=== PATIENT | female | born 1930 | race Caucasian/White ===

== ENCOUNTER 2017-10-21 23:10 | Inpatient (IN) | payer MEDICARE, OTHER ==
[2017-10-22 00:08] LABS: ADD MAN DIFF? NO
[2017-10-22 00:17] LABS: BASOPHILS % 0.2 % (0.0-2.0); EOSINOPHILS % 0.7 % (0.0-7.0); HEMOGLOBIN 8.4 g/dl (12.0-16.0); LYMPHOCYTES # 1.2 10^3/ul (0.8-2.9); LYMPHOCYTES % 20.8 % (15.0-51.0); MEAN CORPUSCULAR HGB CONC 32.3 g/dl (32.0-37.0); MEAN CORPUSCULAR VOLUME 89.7 fl (82.0-101.0); MEAN PLATELET VOLUME 11.3 fl (7.4-10.4); MONOCYTE # 0.5 10^3/ul (0.3-0.9); MONOCYTES % 8.1 % (0.0-11.0); NEUTROPHIL # 3.9 10^3/ul (1.6-7.5); PLATELET COUNT 332 10^3/UL (140-415); RED CELL DISTRIBUTION WIDTH 13.1 % (11.5-14.5)
[2017-10-22 00:17] LABS: WHITE BLOOD COUNT 5.6 10^3/ul (4.8-10.8)
[2017-10-22 00:18] LABS: URINE BLOOD (Dip) POC Negative (NEGATIVE); URINE GLUCOSE (Dip) POC Negative (NEGATIVE); URINE KETONES (Dip) POC Negative (NEGATIVE); URINE LEUKOCYTE EST (Dip) POC Negative (NEGATIVE); URINE NITRITE (Dip) POC Negative (NEGATIVE); URINE TOTAL PROTEIN POC 3+ (NEGATIVE)
[2017-10-22 00:18] LABS: URINE PH (Dip) POC 5.5 (5.0-8.5)
[2017-10-22 00:34] LABS: INR 0.95; PROTIME 12.8 Sec (11.9-14.9)
[2017-10-22 00:35] LABS: PARTIAL THROMBOPLASTIN TIME 29.7 Sec (25.0-35.0)
[2017-10-22 00:37] LABS: LACTIC ACID 1.6 mmol/L (0.5-2.0)
[2017-10-22 00:38] LABS: ALANINE AMINOTRANSFERASE 20 IU/L (13-69); ALBUMIN 3.4 g/dl (3.3-4.9); ALBUMIN/GLOBULIN RATIO 1.09; ALKALINE PHOSPHATASE 64 IU/L (42-121); ANION GAP 21 (8-16); ASPARTATE AMINO TRANSFERASE 16 IU/L (15-46); BLOOD UREA NITROGEN 69 mg/dl (7-20); CALCIUM 8.7 mg/dl (8.4-10.2); CARBON DIOXIDE 20 mmol/L (21-31); CHLORIDE 112 mmol/L (97-110); CREATININE 3.48 mg/dl (0.44-1.00); GLUCOSE 94 mg/dl (70-220); POTASSIUM 5.3 mmol/L (3.5-5.1); SODIUM 148 mmol/L (135-144); TOTAL PROTEIN 6.5 g/dl (6.1-8.1)
[2017-10-22 00:49] LABS: B-TYPE NATRIURETIC PEPTIDE 15600 PG/ML (0-450); TROPONIN-I 0.013 ng/ml (0.00-0.12)
[2017-10-22] MEDS: LABETALOL HCL 20MG INJ IV ×2 (01:39→08:36)
[2017-10-22] MEDS: CEFEPIME 1GM/50 ML (PMX) 50 ML IVPB (01:39)
[2017-10-22] MEDS: NA POLYST SULFON 15 GM/60 ML BTL PO (02:29)
[2017-10-22] MEDS: VANCOMYCIN 1 GM (PMX) 250 ML IVPB (02:33)
[2017-10-22] MEDS: FUROSEMIDE 40 MG INJ IV (03:44)
[2017-10-22 04:14] LABS: LACTIC ACID 1.1 mmol/L (0.5-2.0)
[2017-10-22 05:54] LABS: LACTIC ACID 0.8 mmol/L (0.5-2.0)
[2017-10-22] MEDS ORDERED: LABETALOL HCL 20MG INJ IV (08:30)
[2017-10-22] MEDS ORDERED: AMITRIPTYLINE 25 MG TAB PO (11:00)
[2017-10-22] MEDS: DEXTROSE 5%-0.45% NACL 1,000 ML IV (12:30)
[2017-10-22 12:31] LABS: IRON 26 ug/dl (35-150)
[2017-10-22 12:40] LABS: % IRON SATURATION 13 % SAT (22-52); TOTAL IRON BINDING CAPACITY 202 ug/dl (241-421)
[2017-10-22] MEDS: SALMETEROL/FLUTICASONE 250/50 INHA INH ×2 (14:03→20:56)
[2017-10-22] MEDS: PANTOPRAZOLE 40 MG INJ IV (14:04)
[2017-10-22] MEDS: CLONIDINE 0.1 MG/24 HR PATCH TRANSDERM (14:05)
[2017-10-22] MEDS: ASCORBIC ACID 500 MG TAB PO (14:06)
[2017-10-22] MEDS: ASPIRIN (EC) 81 MG TAB PO (14:06)
[2017-10-22] MEDS: COLCHICINE 0.6 MG TAB PO (14:07)
[2017-10-22] MEDS: VERAPAMIL 40 MG TAB PO ×2 (14:08→20:56)
[2017-10-22] MEDS: LEVOFLOXACIN 250MG/D5W (PMX) 50 ML IVPB (14:41)
[2017-10-22] MEDS: AZITHROMYCIN 500MG/NS (PMX) 250 ML IVPB (14:43)
[2017-10-22] MEDS: ALBUTEROL/IPRATROPIUM (NEB) 3 ML AMP HHN ×2 (15:57→23:50)
[2017-10-22] MEDS: SOD FERRIC GLUC COMPLX 125 MG in SOD CHLORIDE 0.9% 100 ML IVPB (16:42)
[2017-10-22] MEDS: FUROSEMIDE 20 MG TAB PO (17:47)
[2017-10-22] MEDS: AMITRIPTYLINE 25 MG TAB PO (20:57)
[2017-10-22] MEDS ORDERED: FUROSEMIDE 40 MG TAB PO (21:00)
[2017-10-23] MEDS: DEXTROSE 5%-0.45% NACL 1,000 ML IV ×2 (05:40→09:46)
[2017-10-23] MEDS: PANTOPRAZOLE 40 MG INJ IV (06:11)
[2017-10-23] MEDS: FUROSEMIDE 20 MG TAB PO ×2 (06:11→17:47)
[2017-10-23] MEDS: ALBUTEROL/IPRATROPIUM (NEB) 3 ML AMP HHN ×3 (08:00→23:18)
[2017-10-23] MEDS: ASCORBIC ACID 500 MG TAB PO (08:54)
[2017-10-23] MEDS: COLCHICINE 0.6 MG TAB PO (08:54)
[2017-10-23] MEDS: ASPIRIN (EC) 81 MG TAB PO (08:54)
[2017-10-23] MEDS: VERAPAMIL 40 MG TAB PO ×2 (08:55→19:50)
[2017-10-23] MEDS: SALMETEROL/FLUTICASONE 250/50 INHA INH ×2 (08:56→19:51)
[2017-10-23] MEDS ORDERED: NON-FORMULARY/PATIENT OWN MED (Memantine* (Namenda* XR) 28 MG) PO (09:00)
[2017-10-23 10:00] LABS: ADD MAN DIFF? NO
[2017-10-23 10:05] LABS: WHITE BLOOD COUNT 4.6 10^3/ul (4.8-10.8)
[2017-10-23 10:05] LABS: EOSINOPHILS # 0.1 10^3/ul (0.0-0.5); EOSINOPHILS % 1.3 % (0.0-7.0); HEMATOCRIT 23.5 % (37.0-47.0); HEMOGLOBIN 7.7 g/dl (12.0-16.0); LYMPHOCYTES # 1.4 10^3/ul (0.8-2.9); LYMPHOCYTES % 29.3 % (15.0-51.0); MEAN CORPUSCULAR HEMOGLOBIN 28.9 pg (29.0-33.0); MEAN CORPUSCULAR HGB CONC 32.8 g/dl (32.0-37.0); MEAN CORPUSCULAR VOLUME 88.3 fl (82.0-101.0); MEAN PLATELET VOLUME 10.8 fl (7.4-10.4); MONOCYTE # 0.4 10^3/ul (0.3-0.9); MONOCYTES % 9.5 % (0.0-11.0); NEUTROPHIL # 2.8 10^3/ul (1.6-7.5); NEUTROPHILS % 59.7 % (39.0-77.0); PLATELET COUNT 294 10^3/UL (140-415); RED BLOOD COUNT 2.66 10^6/ul (4.20-5.40); RED CELL DISTRIBUTION WIDTH 13.1 % (11.5-14.5)
[2017-10-23 10:36] LABS: ALANINE AMINOTRANSFERASE 20 IU/L (13-69); ALBUMIN 2.9 g/dl (3.3-4.9); ALBUMIN/GLOBULIN RATIO 0.87; ALKALINE PHOSPHATASE 61 IU/L (42-121); ANION GAP 17 (8-16); ASPARTATE AMINO TRANSFERASE 13 IU/L (15-46); BLOOD UREA NITROGEN 58 mg/dl (7-20); CALCIUM 8.4 mg/dl (8.4-10.2); CARBON DIOXIDE 17 mmol/L (21-31); CHLORIDE 113 mmol/L (97-110); CREATININE 3.31 mg/dl (0.44-1.00); GLUCOSE 73 mg/dl (70-220); POTASSIUM 4.5 mmol/L (3.5-5.1); SODIUM 142 mmol/L (135-144); TOTAL PROTEIN 6.2 g/dl (6.1-8.1)
[2017-10-23] MEDS: AZITHROMYCIN 500MG/NS (PMX) 250 ML IVPB (13:50)
[2017-10-23] MEDS: SOD FERRIC GLUC COMPLX 125 MG in SOD CHLORIDE 0.9% 100 ML IVPB (16:20)
[2017-10-23] MEDS: traMADol 50 MG TAB PO (19:50)
[2017-10-23] MEDS: AMITRIPTYLINE 25 MG TAB PO (19:51)
[2017-10-24 05:09] LABS: IMMEDIATE SPIN CROSSMATCH 1 4
[2017-10-24] MEDS: PANTOPRAZOLE 40 MG INJ IV (06:15)
[2017-10-24] MEDS: FUROSEMIDE 20 MG TAB PO ×2 (06:16→17:46)
[2017-10-24] MEDS: ASPIRIN (EC) 81 MG TAB PO (08:40)
[2017-10-24] MEDS: COLCHICINE 0.6 MG TAB PO (08:40)
[2017-10-24] MEDS: ASCORBIC ACID 500 MG TAB PO (08:41)
[2017-10-24] MEDS: VERAPAMIL 40 MG TAB PO ×2 (08:41→21:03)
[2017-10-24] MEDS: SALMETEROL/FLUTICASONE 250/50 INHA INH ×2 (08:42→21:04)
[2017-10-24] MEDS: ALBUTEROL/IPRATROPIUM (NEB) 3 ML AMP HHN ×3 (08:52→23:33)
[2017-10-24] MEDS: AZITHROMYCIN 500MG/NS (PMX) 250 ML IVPB (13:13)
[2017-10-24 13:39] LABS: ADD MAN DIFF? NO
[2017-10-24 13:42] LABS: WHITE BLOOD COUNT 5.2 10^3/ul (4.8-10.8)
[2017-10-24 13:42] LABS: BASOPHILS % 0.2 % (0.0-2.0); EOSINOPHILS % 0.6 % (0.0-7.0); HEMATOCRIT 33.5 % (37.0-47.0); HEMOGLOBIN 11.1 g/dl (12.0-16.0); LYMPHOCYTES # 1.3 10^3/ul (0.8-2.9); LYMPHOCYTES % 24.1 % (15.0-51.0); MEAN CORPUSCULAR HEMOGLOBIN 28.6 pg (29.0-33.0); MEAN CORPUSCULAR HGB CONC 33.1 g/dl (32.0-37.0); MEAN CORPUSCULAR VOLUME 86.3 fl (82.0-101.0); MEAN PLATELET VOLUME 10.8 fl (7.4-10.4); MONOCYTE # 0.4 10^3/ul (0.3-0.9); MONOCYTES % 8.1 % (0.0-11.0); NEUTROPHIL # 3.5 10^3/ul (1.6-7.5); NEUTROPHILS % 66.6 % (39.0-77.0); PLATELET COUNT 314 10^3/UL (140-415); RED BLOOD COUNT 3.88 10^6/ul (4.20-5.40)
[2017-10-24 14:05] LABS: ALANINE AMINOTRANSFERASE 19 IU/L (13-69); ALBUMIN 3.2 g/dl (3.3-4.9); ALBUMIN/GLOBULIN RATIO 1.03; ALKALINE PHOSPHATASE 63 IU/L (42-121); ANION GAP 18 (8-16); ASPARTATE AMINO TRANSFERASE 13 IU/L (15-46); BILIRUBIN,INDIRECT 0.3 mg/dl (0-1.1); BILIRUBIN,TOTAL 0.3 mg/dl (0.2-1.3); BLOOD UREA NITROGEN 50 mg/dl (7-20); CALCIUM 8.6 mg/dl (8.4-10.2); CARBON DIOXIDE 17 mmol/L (21-31); CHLORIDE 114 mmol/L (97-110); CREATININE 2.91 mg/dl (0.44-1.00); GLUCOSE 120 mg/dl (70-220); POTASSIUM 4.7 mmol/L (3.5-5.1); SODIUM 144 mmol/L (135-144); TOTAL PROTEIN 6.3 g/dl (6.1-8.1)
[2017-10-24] MEDS: LEVOFLOXACIN 250MG/D5W (PMX) 50 ML IVPB (14:41)
[2017-10-24] MEDS: DEXTROSE 5%-0.45% NACL 1,000 ML IV ×2 (14:42→17:46)
[2017-10-24] MEDS: SOD FERRIC GLUC COMPLX 125 MG in SOD CHLORIDE 0.9% 100 ML IVPB (17:46)
[2017-10-24 18:07] LABS: HAAIG REFLEX REFLEX FILED
[2017-10-24 19:30] LABS: HEPATITIS B SURFACE ANTIGEN NEGATIVE (NEGATIVE)
[2017-10-24 19:48] LABS: HEPATITIS B CORE ANTIBODY NEGATIVE (NEGATIVE); HEPATITIS C VIRAL ANTIBODY NEGATIVE (NEGATIVE)
[2017-10-24] MEDS: AMITRIPTYLINE 25 MG TAB PO (20:58)
[2017-10-25 06:38] LABS: CREATININE,URINE RANDOM 66.33 mg/dl (20-320); PROTEIN/CREAT RATIO 2.95 RATIO
[2017-10-25 06:39] LABS: CREATININE,URINE RANDOM 63.36 mg/dl (20-320)
[2017-10-25] MEDS: PANTOPRAZOLE 40 MG INJ IV (06:39)
[2017-10-25 06:40] LABS: SODIUM,URINE RANDOM 60 mmol/L (30-90)
[2017-10-25] MEDS: FUROSEMIDE 20 MG TAB PO ×2 (06:40→15:51)
[2017-10-25 07:07] LABS: ALANINE AMINOTRANSFERASE 19 IU/L (13-69); ALBUMIN 2.8 g/dl (3.3-4.9); ALBUMIN/GLOBULIN RATIO 0.84; ALKALINE PHOSPHATASE 66 IU/L (42-121); ANION GAP 18 (8-16); ASPARTATE AMINO TRANSFERASE 14 IU/L (15-46); BILIRUBIN,INDIRECT 0.2 mg/dl (0-1.1); BILIRUBIN,TOTAL 0.2 mg/dl (0.2-1.3); BLOOD UREA NITROGEN 49 mg/dl (7-20); CALCIUM 8.5 mg/dl (8.4-10.2); CARBON DIOXIDE 17 mmol/L (21-31); CHLORIDE 115 mmol/L (97-110); GLUCOSE 99 mg/dl (70-220); PHOSPHORUS 5.1 mg/dl (2.5-4.9); POTASSIUM 4.8 mmol/L (3.5-5.1); SODIUM 145 mmol/L (135-144); TOTAL PROTEIN 6.1 g/dl (6.1-8.1)
[2017-10-25] MEDS: ALBUTEROL/IPRATROPIUM (NEB) 3 ML AMP HHN ×2 (08:28→21:43)
[2017-10-25] MEDS: SALMETEROL/FLUTICASONE 250/50 INHA INH ×3 (09:00→21:00)
[2017-10-25] MEDS: VERAPAMIL 40 MG TAB PO ×3 (09:00→22:11)
[2017-10-25] MEDS: COLCHICINE 0.6 MG TAB PO (09:19)
[2017-10-25] MEDS: ASCORBIC ACID 500 MG TAB PO (09:19)
[2017-10-25] MEDS: ASPIRIN (EC) 81 MG TAB PO (09:20)
[2017-10-25] MEDS ORDERED: LORAZEPAM 2 MG INJ IV (15:30)
[2017-10-25] MEDS: CLONIDINE 0.2 MG/24 HR PATCH TRANSDERM (15:45)
[2017-10-25] MEDS: hydrALAzine 20 MG INJ IV ×2 (15:45→21:12)
[2017-10-25] MEDS: AZITHROMYCIN 500MG/NS (PMX) 250 ML IVPB (15:50)
[2017-10-25] MEDS: NA BICARBONATE 650 MG TAB PO ×2 (15:51→22:13)
[2017-10-25] MEDS: BUMETANIDE 1 MG INJ IV (16:57)
[2017-10-25] MEDS: DEXTROSE 5% 1,000 ML IV (16:57)
[2017-10-25] MEDS: NITROGLYCERIN 2% 1 GM OINT PKT TD (22:07)
[2017-10-25] MEDS: AMITRIPTYLINE 25 MG TAB PO (22:12)
[2017-10-26] MEDS: hydrALAzine 20 MG INJ IV ×3 (03:48→18:48)
[2017-10-26] MEDS: PANTOPRAZOLE 40 MG INJ IV (06:00)
[2017-10-26] MEDS: ALBUTEROL/IPRATROPIUM (NEB) 3 ML AMP HHN ×3 (07:57→22:48)
[2017-10-26] MEDS: VERAPAMIL 40 MG TAB PO ×2 (09:00→21:08)
[2017-10-26] MEDS: NA BICARBONATE 650 MG TAB PO ×2 (09:00→20:11)
[2017-10-26] MEDS: COLCHICINE 0.6 MG TAB PO (09:00)
[2017-10-26] MEDS: ASPIRIN (EC) 81 MG TAB PO (09:00)
[2017-10-26] MEDS: SALMETEROL/FLUTICASONE 250/50 INHA INH ×2 (09:00→20:11)
[2017-10-26] MEDS: ASCORBIC ACID 500 MG TAB PO (09:00)
[2017-10-26] MEDS: LEVOFLOXACIN 250MG/D5W (PMX) 50 ML IVPB (12:49)
[2017-10-26] MEDS: AZITHROMYCIN 500MG/NS (PMX) 250 ML IVPB (14:39)
[2017-10-26] MEDS: NITROGLYCERIN 2% 1 GM OINT PKT TD (14:45)
[2017-10-26] MEDS: CLONIDINE 0.3 MG/24 HR PATCH TRANSDERM (16:31)
[2017-10-26 17:23] LABS: PTH CALCIUM 8.3 mg/dL (8.6-10.4)
[2017-10-26] MEDS: AMITRIPTYLINE 25 MG TAB PO (20:13)
[2017-10-27] MEDS: PANTOPRAZOLE 40 MG INJ IV (05:27)
[2017-10-27] MEDS: hydrALAzine 20 MG INJ IV (05:27)
[2017-10-27] MEDS: ALBUTEROL/IPRATROPIUM (NEB) 3 ML AMP HHN ×3 (07:49→22:24)
[2017-10-27 08:21] LABS: PTH INTACT 98 pg/mL (14-64)
[2017-10-27] MEDS: VERAPAMIL 40 MG TAB PO ×2 (09:00→20:24)
[2017-10-27] MEDS: ASCORBIC ACID 500 MG TAB PO (09:00)
[2017-10-27] MEDS: ASPIRIN (EC) 81 MG TAB PO (09:00)
[2017-10-27] MEDS: COLCHICINE 0.6 MG TAB PO (09:00)
[2017-10-27] MEDS: SALMETEROL/FLUTICASONE 250/50 INHA INH ×2 (09:00→20:29)
[2017-10-27] MEDS: NA BICARBONATE 650 MG TAB PO ×2 (09:00→20:25)
[2017-10-27] MEDS: NITROGLYCERIN 2% 1 GM OINT PKT TD (09:15)
[2017-10-27] MEDS: AMITRIPTYLINE 25 MG TAB PO (20:25)
[2017-10-28] MEDS: hydrALAzine 20 MG INJ IV ×2 (01:52→13:39)
[2017-10-28] MEDS: PANTOPRAZOLE 40 MG INJ IV (05:53)
[2017-10-28 07:03] LABS: ANION GAP 17 (8-16); BLOOD UREA NITROGEN 48 mg/dl (7-20); CALCIUM 8.5 mg/dl (8.4-10.2); CARBON DIOXIDE 20 mmol/L (21-31); CHLORIDE 116 mmol/L (97-110); CREATININE 2.88 mg/dl (0.44-1.00); GLUCOSE 75 mg/dl (70-220); POTASSIUM 4.5 mmol/L (3.5-5.1); SODIUM 148 mmol/L (135-144)
[2017-10-28] MEDS: ALBUTEROL/IPRATROPIUM (NEB) 3 ML AMP HHN ×4 (08:17→23:07)
[2017-10-28] MEDS: DEXTROSE 5% 1,000 ML IV (11:00)
[2017-10-28] MEDS: NITROGLYCERIN 2% 1 GM OINT PKT TD (13:53)
[2017-10-28] MEDS: COLCHICINE 0.6 MG TAB PO (13:56)
[2017-10-28] MEDS: ASPIRIN (EC) 81 MG TAB PO (13:56)
[2017-10-28] MEDS: NA BICARBONATE 650 MG TAB PO ×3 (13:56→23:37)
[2017-10-28] MEDS: VERAPAMIL 40 MG TAB PO ×3 (13:57→23:37)
[2017-10-28] MEDS: ASCORBIC ACID 500 MG TAB PO (13:57)
[2017-10-28] MEDS: SALMETEROL/FLUTICASONE 250/50 INHA INH ×2 (13:58→21:00)
[2017-10-28] MEDS ORDERED: SODIUM BICARBONATE (IV ADD) 50 MEQ in DEXTROSE 5% 950 ML IV (16:30)
[2017-10-28] MEDS: SODIUM BICARBONATE (IV ADD) 50 MEQ in DEXTROSE 5% 950 ML IV (18:22)
[2017-10-28 20:07] LABS: ANION GAP 19 (8-16); BLOOD UREA NITROGEN 48 mg/dl (7-20); CALCIUM 8.2 mg/dl (8.4-10.2); CARBON DIOXIDE 20 mmol/L (21-31); CHLORIDE 113 mmol/L (97-110); CREATININE 2.86 mg/dl (0.44-1.00); GLUCOSE 116 mg/dl (70-220); POTASSIUM 4.6 mmol/L (3.5-5.1); SODIUM 147 mmol/L (135-144)
[2017-10-28] MEDS: AMITRIPTYLINE 25 MG TAB PO ×2 (21:00→23:38)
[2017-10-29] MEDS: PANTOPRAZOLE 40 MG INJ IV (06:25)
[2017-10-29] MEDS: ALBUTEROL/IPRATROPIUM (NEB) 3 ML AMP HHN ×3 (07:35→23:11)
[2017-10-29] MEDS: SALMETEROL/FLUTICASONE 250/50 INHA INH ×2 (09:00→21:00)
[2017-10-29] MEDS: COLCHICINE 0.6 MG TAB PO (09:00)
[2017-10-29] MEDS: ASPIRIN (EC) 81 MG TAB PO (09:00)
[2017-10-29] MEDS: ASCORBIC ACID 500 MG TAB PO (09:00)
[2017-10-29] MEDS: NA BICARBONATE 650 MG TAB PO ×3 (09:00→20:57)
[2017-10-29] MEDS: VERAPAMIL 40 MG TAB PO ×3 (09:00→20:56)
[2017-10-29] MEDS: NITROGLYCERIN 2% 1 GM OINT PKT TD ×2 (10:15→23:48)
[2017-10-29 12:09] LABS: ANION GAP 14 (8-16); BLOOD UREA NITROGEN 50 mg/dl (7-20); CALCIUM 8.1 mg/dl (8.4-10.2); CARBON DIOXIDE 20 mmol/L (21-31); CHLORIDE 113 mmol/L (97-110); CREATININE 2.85 mg/dl (0.44-1.00); GLUCOSE 81 mg/dl (70-220); POTASSIUM 4.3 mmol/L (3.5-5.1); SODIUM 143 mmol/L (135-144)
[2017-10-29] MEDS ORDERED: METOPROLOL 5 MG INJ IV (12:30)
[2017-10-29] MEDS ORDERED: hydrALAzine 20 MG INJ IV (12:30)
[2017-10-29] MEDS: DEXTROSE 5% 1,000 ML IV (14:17)
[2017-10-29] MEDS: hydrALAzine 20 MG INJ IV (15:51)
[2017-10-29] MEDS: AMITRIPTYLINE 25 MG TAB PO ×2 (20:49→20:57)
[2017-10-30] MEDS: hydrALAzine 20 MG INJ IV ×2 (00:02→06:05)
[2017-10-30] MEDS: PANTOPRAZOLE 40 MG INJ IV (06:05)
[2017-10-30 06:54] LABS: ANION GAP 13 (8-16); BLOOD UREA NITROGEN 48 mg/dl (7-20); CALCIUM 8.2 mg/dl (8.4-10.2); CARBON DIOXIDE 20 mmol/L (21-31); CHLORIDE 110 mmol/L (97-110); CREATININE 2.67 mg/dl (0.44-1.00); GLUCOSE 81 mg/dl (70-220); POTASSIUM 4.4 mmol/L (3.5-5.1); SODIUM 139 mmol/L (135-144)
[2017-10-30] MEDS: ASCORBIC ACID 500 MG TAB PO ×2 (09:00→09:16)
[2017-10-30] MEDS: COLCHICINE 0.6 MG TAB PO ×2 (09:00→09:14)
[2017-10-30] MEDS: ASPIRIN (EC) 81 MG TAB PO ×2 (09:00→09:15)
[2017-10-30] MEDS: NA BICARBONATE 650 MG TAB PO ×2 (09:00→09:16)
[2017-10-30] MEDS: VERAPAMIL 40 MG TAB PO ×2 (09:00→09:15)
[2017-10-30] MEDS: SALMETEROL/FLUTICASONE 250/50 INHA INH ×2 (09:00→09:13)
[2017-10-30] MEDS: DEXTROSE 5% 1,000 ML IV (09:12)
[2017-10-30] MEDS: NITROGLYCERIN 2% 1 GM OINT PKT TD (09:16)
[2017-10-30] MEDS: ALBUTEROL/IPRATROPIUM (NEB) 3 ML AMP HHN ×2 (09:34→16:40)
== END 2017-10-30 20:10 | disposition home or self-care (01) | DRG 194 ==
LOC: E/R 23:10 → MS2 10-22 01:42
PROC: 30233N1 Transfusion of Nonautologous Red Blood Cells into Peripheral Vein, Percutaneous Approach (ICD-10-PCS; principal; 2017-10-24)
DX: J18.9 Pneumonia, unspecified organism (principal); N17.9 Acute kidney failure, unspecified; I67.4 Hypertensive encephalopathy; E87.2 Acidosis; E44.0 Moderate protein-calorie malnutrition; I13.0 Hypertensive heart and chronic kidney disease with heart failure and stage 1 through stage 4 chronic kidney disease, or unspecified chronic kidney disease; I50.32 Chronic diastolic (congestive) heart failure; Q61.3 Polycystic kidney, unspecified; G45.9 Transient cerebral ischemic attack, unspecified; N11.9 Chronic tubulo-interstitial nephritis, unspecified; E87.5 Hyperkalemia; E11.22 Type 2 diabetes mellitus with diabetic chronic kidney disease; N18.9 Chronic kidney disease, unspecified; D63.1 Anemia in chronic kidney disease; F43.10 Post-traumatic stress disorder, unspecified; G30.9 Alzheimer's disease, unspecified; F02.80 Dementia in other diseases classified elsewhere, unspecified severity, without behavioral disturbance, psychotic disturbance, mood disturbance, and anxiety; F41.9 Anxiety disorder, unspecified; F32.9 Major depressive disorder, single episode, unspecified; Z91.14 Patient's other noncompliance with medication regimen; M17.9 Osteoarthritis of knee, unspecified; M19.019 Primary osteoarthritis, unspecified shoulder; R32 Unspecified urinary incontinence; M81.0 Age-related osteoporosis without current pathological fracture; K21.9 Gastro-esophageal reflux disease without esophagitis; E11.21 Type 2 diabetes mellitus with diabetic nephropathy; Z68.20 Body mass index [BMI] 20.0-20.9, adult; Z86.73 Personal history of transient ischemic attack (TIA), and cerebral infarction without residual deficits; G31.84 Mild cognitive impairment of uncertain or unknown etiology; D69.6 Thrombocytopenia, unspecified; R13.10 Dysphagia, unspecified
CPT/HCPCS: 36415; 36430; 71045; 71250; 76775; 80048; 80053; 81003; 82570; 83540; 83605; 83880; 83970; 84100; 84155; 84300; 84484; 85025; 85610; 85730; 86704; 86709; 86803; 86850; 86900; 86901; 86920; 87040; 87086; 87340; 92526; 92610; 93005; 93306; 94640; 94664; 96374; 96375; 96376; 97110; 97116; 97162; 97530; 99291-25